=== PATIENT | male | born 1985 | race African-American/Black ===

== ENCOUNTER 2025-03-12 09:43 | Emergency (ER) | payer OTHER, SELFPAY ==
[2025-03-12] VITALS (8 sets, daily range): BP systolic 106–124; BP diastolic 68–72; PULSE 50–95; RESP 13–16; TEMP 37.1; O2SAT 96–100; BMI 23.3
--- NOTE | 2025-03-12 10:09 | PC.NURSE ---
c-collar placed at triage
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
== END 2025-03-12 13:04 | disposition home or self-care (01) ==
PROVIDERS: Emergency Provider Student in an Organized Health Care Education/Training Program
DX: S09.8XXA Other specified injuries of head, initial encounter (principal); V86.56XA Driver of dirt bike or motor/cross bike injured in nontraffic accident, initial encounter; S16.1XXA Strain of muscle, fascia and tendon at neck level, initial encounter; S00.81XA Abrasion of other part of head, initial encounter
CPT/HCPCS: 70450; 70486; 72125; 99283; 99284

== ENCOUNTER 2025-06-17 05:29 | Emergency (ER) | payer OTHER, SELFPAY ==
[2025-06-17 05:38] VITALS: BP 141/85; PULSE 67; RESP 16; TEMP 37; O2SAT 98; BMI 23.0
--- NOTE | 2025-06-17 05:49 | ED_ITS ---
HPI - Skin/Abscess/Foreign Bdy General Chief complaint: Skin/Abscess/Foreign Body Stated complaint: R Hand Finger Pain Time Seen by Provider: 06/17/25 05:41 Source: patient Mode of arrival: Ambulatory Limitations: no limitations History of Present Illness HPI narrative: 39-year-old male who about 2 days ago cut his right 5th finger and since then has developed allow more redness swelling and pain around that right 5th finger. Patient has also been dealing with perirectal discomfort in the last few days. He denies any fever chills or other symptoms. Related Data Allergies Allergy/AdvReac Type Severity Reaction Status Date / Time No Known Drug Allergies Allergy Verified 06/17/25 05:38 Review of Systems Review of Systems ROS Unobtainable: All systems reviewed & are unremarkable except as noted in HPI and below Patient History tobacco type: vaping Exam Narrative Exam Narrative: General: Patient appears to be in no acute distress, acting appropriately , possibly under influence of marijuana Head: normocephalic, atraumatic, HEENT: Pupils equal round reactive, eyes tracking well, neck supple, no JVD Heart: regular rate and rhythm, no murmurs, rubs, or gallops heard Lungs: clear to auscultation, no adventitious sounds Abdomen: soft , nontender, nondistended, positive bowel sounds Neurological: no focal neurological signs, moving all extremities well, alert and oriented x3, Psych: good judgment ,good insight, mood is normal. right fifth finger- swollen, red, tender to touch, has potential entry point of healed incision rectal exam: has small 1-2mm perirectal abscess , no hemorrhoids, fisture, or fistula Initial Vital Signs Initial Vital Signs: Vital Signs Temperature 98.6 F 06/17/25 05:38 Pulse Rate 67 06/17/25 05:38 Respiratory Rate 16 06/17/25 05:38 Blood Pressure 141/85 H 06/17/25 05:38 Pulse Oximetry 98 06/17/25 05:38 Oxygen Delivery Method Room Air 06/17/25 05:38 Course Orders Ordered: Discontinued Medications Hydrocodone Bitart/Acetaminophen (Hydrocodone/Acet 5/325 Prepack) 1 bottle MISC DIRECTED ONE Stop: 06/17/25 06:13 Last Admin: 06/17/25 06:48 Dose: 1 bottle Documented By: CHRISTOPHER Ceftriaxone Sodium (Ceftriaxone 2,000 Mg Vial) 1,000 mg IM NOW ONE Stop: 06/17/25 06:13 Last Admin: 06/17/25 06:59 Dose: 1,000 mg Documented By: JAIDEN Lidocaine HCl (Lidocaine 1% 20 Ml) 2.1 ml INJ NOW ONE Stop: 06/17/25 06:46 Vital Signs Vital signs: Vital Signs - 8 hr 06/17/25 05:38 Temperature 98.6 F Pulse Rate 67 Respiratory Rate 16 Blood Pressure 141/85 H Pulse Oximetry 98 Oxygen Delivery Method Room Air MDM - Skin/Abscess/Foreign Bdy MDM Narrative Medical decision making narrative: 39-year-old male who has a an obvious cellulitic picture of his right 5th finger and a small perirectal abscess forming. We will attempt to treat both with antibiotics for now. Patient given a Rocephin 1 g IM injection here to initiate treatment. Also given a prepack of [place] to help with some pain. Advised to come back in 1-2 days if not improved. Discharge Plan Departure Patient Disposition: Home Clinical Impression: Abscess, perirectal Cellulitis Qualifiers: Site of cellulitis: extremity Site of cellulitis of extremity: finger Laterality: right Qualified Code(s): L03.011 - Cellulitis of right finger Instructions: DI for Cellulitis -- Adult, DI for Skin Abscess Activity Restrictions/Additional Instructions: Take antibiotics as prescribed. Soak in warm bath for 10-15 minutes a few times a day. If not improved in the next 2 days come back to ER. Referrals: Miscellaneous,Doctor, [Primary Care Provider, Medical] Stand Alone Forms: Patient Portal/API, Work Release Note
--- NOTE | 2025-06-17 07:01 | PC.NURSE ---
swelling and redness noted to pinky
[2025-06-17 07:05] VITALS: PULSE 60; RESP 20; O2SAT 100
[2025-06-17 07:06] VITALS: PULSE 62; RESP 16; TEMP 37.1; O2SAT 98
== END 2025-06-17 07:06 | disposition home or self-care (01) ==
PROVIDERS: Emergency Provider Family Medicine
DX: L03.011 Cellulitis of right finger (principal); K61.1 Rectal abscess
CPT/HCPCS: 96372; 99283; J0696